=== PATIENT | female | born 1985 | race Caucasian/White ===

== ENCOUNTER 2021-06-11 13:22 | Emergency (ER) | payer OTHER ==
[~2021-06-11] VITALS: Ht 152.4 cm; Wt 49.0 kg
[2021-06-11 14:46] LABS: BASOPHILS ABSOLUTE AUTO 0.04 K/mm3 (0.00-0.23); BASOPHILS PERCENT AUTO 1 % (0-2); EOSINOPHILS ABSOLUTE AUTO 0.06 K/mm3 (0.00-0.68); EOSINOPHILS PERCENT AUTO 1 % (0-6); Hematocrit 48.2 % (33.0-51.0); Hemoglobin 15.6 g/dL (11.5-16.0); IMMATURE GRAN ABSOLUTE AUTO 0.01 K/mm3 (0.00-0.10); IMMATURE GRAN PERCENT AUTO 0 % (0-1); LYMPHOCYTES ABSOLUTE AUTO 0.55 K/mm3 (0.84-5.20); LYMPHOCYTES PERCENT AUTO 9 % (21-46); MONOCYTES PERCENT AUTO 6 % (4-13); Mean Corpuscular HGB 28.6 pg (26.0-34.0); Mean Corpuscular HGB Conc 32.4 g/dL (31.5-36.5); Mean Corpuscular Volume 88 fL (80-100); NEUTROPHILS ABSOLUTE AUTO 5.18 K/mm3 (1.96-9.15); NEUTROPHILS PERCENT AUTO 83 % (41-73); Platelet Count 295 K/mm3 (150-400); RDW Coefficient Variation 13.2 % (11.7-14.2); RDW Standard Deviation 42.7 fL (35.1-46.3); Red Blood Cell Count 5.46 M/mm3 (3.80-5.20); White Blood Cell Count 6.24 K/mm3 (4.00-11.30)
[2021-06-11 15:06] LABS: Alanine Aminotransfer (ALT/SGP 32 U/L (12-78); Albumin, Blood 3.7 g/dL (3.4-5.0); Albumin/Globulin Ratio 0.9 (0.8-1.8); Alk Phos 84 U/L (50-136); Anion Gap 7 mmol/L (6-16); Aspartate Aminotrans (AST/SGOT 15 U/L (12-37); Bilirubin, Total 0.2 mg/dL (0.1-1.0); Blood Urea Nitrogen 6 mg/dL (8-24); Bun/Creatinine Ratio 10.6 (12.0-20.0); CO2, Blood 28 mmol/L (21-32); Chloride, Blood 104 mmol/L (98-108); Creatinine, Blood 0.57 mg/dL (0.40-1.00); Globulin, Blood 4.1 g/dL (2.2-4.0); Glomerular Filtration Rate >60 (60-); Glucose, Blood 99 mg/dL (70-99); Potassium, Blood 3.6 mmol/L (3.5-5.5); Sodium, Blood 139 mmol/L (136-145); Total Protein, Blood 7.8 g/dL (6.4-8.2)
[2021-06-11] MEDS ORDERED: CEFU500T30 PO (16:34)
== END 2021-06-11 16:50 | disposition home or self-care (01) ==
LOC: ER 13:22
PROVIDERS: Physician Assistant
DX: H66.92 Otitis media, unspecified, left ear (principal); N39.0 Urinary tract infection, site not specified; F17.210 Nicotine dependence, cigarettes, uncomplicated
CPT/HCPCS: 71045; 80053; 85025; 99284-25; A9270

== ENCOUNTER → 2021-12-30 | Outpatient (CLI) | payer OTHER ==
[~2021-12-30] MED LIST: CEFU500T30 PO
[2021-12-30 18:59] LABS: BASOPHILS ABSOLUTE AUTO 0.02 K/mm3 (0.00-0.23); BASOPHILS PERCENT AUTO 0 % (0-2); EOSINOPHILS ABSOLUTE AUTO 0.24 K/mm3 (0.00-0.68); EOSINOPHILS PERCENT AUTO 2 % (0-6); Hematocrit 32.4 % (33.0-51.0); Hemoglobin 10.5 g/dL (11.5-16.0); IMMATURE GRAN ABSOLUTE AUTO 0.06 K/mm3 (0.00-0.10); IMMATURE GRAN PERCENT AUTO 1 % (0-1); LYMPHOCYTES ABSOLUTE AUTO 1.93 K/mm3 (0.84-5.20); LYMPHOCYTES PERCENT AUTO 16 % (21-46); MONOCYTES ABSOLUTE AUTO 0.55 K/mm3 (0.16-1.47); MONOCYTES PERCENT AUTO 5 % (4-13); Mean Corpuscular HGB 28.1 pg (26.0-34.0); Mean Corpuscular HGB Conc 32.4 g/dL (31.5-36.5); Mean Corpuscular Volume 87 fL (80-100); Mean Platelet Volume 9.9 fL (9.1-12.4); NEUTROPHILS ABSOLUTE AUTO 9.44 K/mm3 (1.96-9.15); NEUTROPHILS PERCENT AUTO 77 % (41-73); Platelet Count 304 K/mm3 (150-400); RDW Coefficient Variation 13.9 % (11.7-14.2); RDW Standard Deviation 43.4 fL (35.1-46.3); Red Blood Cell Count 3.74 M/mm3 (3.80-5.20); White Blood Cell Count 12.24 K/mm3 (4.00-11.30)
[2021-12-30 20:11] LABS: Percent Saturation 5.8 % (15.0-50.0)
[2021-12-30 20:18] LABS: Albumin, Blood 2.6 g/dL (3.4-5.0); Albumin/Globulin Ratio 0.8 (0.8-1.8); Bilirubin, Total 0.1 mg/dL (0.1-1.0); Bun/Creatinine Ratio 9.6 (12.0-20.0); Calcium, Blood 8.5 mg/dL (8.5-10.1); Creatinine, Blood 0.52 mg/dL (0.40-1.00); Globulin, Blood 3.2 g/dL (2.2-4.0); Potassium, Blood 4.4 mmol/L (3.5-5.5); Total Protein, Blood 5.8 g/dL (6.4-8.2)
== END | disposition home or self-care (01) ==
LOC: LAB 16:20 → LAB SHORT 16:20
PROVIDERS: Obstetrics & Gynecology
DX: O09.93 Supervision of high risk pregnancy, unspecified, third trimester (principal)
CPT/HCPCS: 80053; 82728; 82950; 83540; 83550; 85025

== ENCOUNTER → 2022-01-27 | Outpatient (CLI) | payer OTHER | END | disposition home or self-care (01) | LOC: LAB SHORT 16:04 → LAB 16:04 | DX: O09.33 Supervision of pregnancy with insufficient antenatal care, third trimester (principal) | CPT/HCPCS: 87081; 87150 ==

== ENCOUNTER 2022-02-10 16:56 | Inpatient (IN) | payer OTHER ==
[~2022-02-10] VITALS: Ht 152.4 cm; Wt 65.7 kg
[2022-02-10 17:35] LABS: BASOPHILS ABSOLUTE AUTO 0.03 K/mm3 (0.00-0.23); BASOPHILS PERCENT AUTO 0 % (0-2); EOSINOPHILS ABSOLUTE AUTO 0.13 K/mm3 (0.00-0.68); EOSINOPHILS PERCENT AUTO 1 % (0-6); Hematocrit 32.7 % (33.0-51.0); Hemoglobin 10.9 g/dL (11.5-16.0); IMMATURE GRAN PERCENT AUTO 1 % (0-1); LYMPHOCYTES PERCENT AUTO 14 % (21-46); MONOCYTES PERCENT AUTO 4 % (4-13); Mean Corpuscular HGB Conc 33.3 g/dL (31.5-36.5); Mean Corpuscular Volume 81 fL (80-100); Mean Platelet Volume 9.5 fL (9.1-12.4); NEUTROPHILS ABSOLUTE AUTO 9.51 K/mm3 (1.96-9.15); NEUTROPHILS PERCENT AUTO 79 % (41-73); Platelet Count 291 K/mm3 (150-400); RDW Coefficient Variation 15.3 % (11.7-14.2); RDW Standard Deviation 44.1 fL (35.1-46.3); Red Blood Cell Count 4.03 M/mm3 (3.80-5.20); White Blood Cell Count 11.97 K/mm3 (4.00-11.30)
[2022-02-10 20:39] LABS: U Amphetamine Screen DETECTED; U Barbituate Screen Not Detected; U Benzodiazapine Screen Not Detected; U Cannabinoids Screen Not Detected; U Cocaine Screen Not Detected; U Methadone Screen Not Detected; U Methamphetamine Screen DETECTED; U Opiates Screen Not Detected; U Phencyclidine Screen Not Detected
[2022-02-10 20:40] LABS: U Buprenorphine Screen Not Detected; U Oxycodone Screen Not Detected; U Propoxyphene Screen Not Detected
--- NOTE | 2022-02-11 09:06 | NUR ---
UPON ASSESSMENT, PATIENT STATES THAT SHE ALMOST GOT ARRESTED BECAUSE HER CARD WAS DECLINED, SHE ALSO STATES THAT IT IS RUDE TO TAKE AWAY A PREGRANT'S PARFAIT.
--- NOTE | 2022-02-11 17:14 | NUR ---
UPON MEETING WITH [facility] WORKERS, GILBERTO DALY AND SARAY BARRIOS, PT WAS NOTIFIED THAT THEY WERE DECLARING CUSTODY OF HER SON. PT BECAME EXTREMELY UPSET AND STATED IF [facility] TAKES HER BABY, "I WILL GO HOME AND SLIT MY WRISTS". RN NOTIFIED CHARGE NURSE MOISES SCHNEIDER AND RECOMMENDED TO CALL NURSING GUNITE NOZZLE OPERATOR MOISES SY. MOISES SY CALLED AND UPDATED ON STATEMENTS OF PT. WAS TOLD TO CALL PROVIDER TO COME IN AND ASSESS PT FOR [address] DAVILA CALLED AND WENT TO VOICEMAIL. DR. CRUZ THEN CALLED AND NOTIFIED OF PT'S STATEMENTS REGARDING SELF HARM. AT THIS TIME, PT STARTED TO WALK BY THE NURSES STATION WITH OLGA LIDIA KERR (WHO WAS 04/17 DUE TO SUICIDE RISK) AND SECURITY TONYA CUNHA FOR SAFETY. PT WAS ENCOURAGED TO GO BACK TO HER ROOM AND SHE AGREED. AT THIS TIME, DR. CRUZ WAS TOLD PT WAS LEAVING. COMMUNICATIONS SYSTEMS ENGINEER MOISES GALLARDO CALLED AND REQUESTED TO COME TO THE SWEDGER FOR HELP ON FURTHER DIRECTION. MOISES GALLARDO CALLED MOISES SY AGAIN THINGS WERE ESCALATING. MOISES SY WAS IN THE MIDDLE OF AN EMERGENCY DEPARTMENT SITUATION AND STATED SHE WOULD COME DOWN NI. DR. CRUZ CALLED BACK AND REQUESTED SHE COME IN TO SEE THE PATIENT NOW THE PT WAS BACK IN HER ROOM. AT THIS TIME, RN BACK IN ROOM WITH PT, REQUESTING SHE FINISH THE CERTIFICATE INFORMATION. PT STATED, "WHY, I'M NOT HIS MOTHER NOW". PT THEN STATED SHE WAS, "GOING TO LEAVE AND JUMP IN FRONT OF A CAR". SOON, MOISES SY WAS IN ROOM TO EXPLAIN TO PT WHY THESE STATEMENTS HAVE CAUSED US TO TAKE HER SAFETY SERIOUSLY AND THAT A PHYSICIAN NEEDED TO COME IN AND EVALUATE HER. THAT IF THE PT LEFT AGAINST MEDICAL ADVICE, WE WOULD NEED TO CALL THE POLICE FOR HER SAFETY. PT WAS FRUSTRATED BUT CALMED DOWN AND STATED SHE UNDERSTOOD WHY WHAT SHE HAD SAID PUT IN MOTION FOR STAFF TO BE CONCERNED FOR HER SAFETY. DR. CRUZ THEN ARRIVED ON THE UNIT. AT THIS TIME, DR. DAVILA CALLED BACK AND UPDATED BY RN. DR. CRUZ DECIDED TO TALK TO DR. DAVILA ON THE PHONE AND THEN GO IN AND SPEAK WITH THE PT. THE PT ADMITTED TO DR. CRUZ THAT THE SELF HARM STATEMENTS WERE SAID, "OUT OF FRUSTRATION AND HAVING NO CONTROL OVER THE SITUATION". DR. CRUZ SPENT TIME ASKING PT ABOUT THE REALITY OF PT COMMITTING SUICIDE OR SELF HARM. PT DENIED EVER HAVING PREVIOUS THOUGHTS OF SELF HARM AND DID NOT EVEN AGREE WITH SUICIDE. PT DENIED HISTORY OF ATTEMPTED SUICIDE AND/OR CUTTING HERSELF. PT DENIED HAVING ACCESS TO A GUN. PT STATED SHE JUST, "WANT TO GO HOME TO MY COMFY PILLOWS AND MY DOG". DR. CRUZ ASSESSED AND DETERMINED PT IS NOT SERIOUS ABOUT HER SELF HARM AND SUICIDE THREATES. VERBAL OK TO D/C PT HOME. PT D/C HOME AT 1705.
--- NOTE | 2022-02-11 17:43 | NUR ---
UPON DISCHARGE, PT REFUSED FOLLOW UP APPOITNMENT AND COMPLETING HEALTHY START FORM AND [place] DEPRESSION SCALE.
[2022-02-12 07:11] LABS: HIV AB/P24 AG SCREEN Non Reactive (Non Reactive)
[2022-02-12 10:11] LABS: HBSAG SCREEN Negative (Negative); HCV AB <0.1 (0.0-0.9); HEP B CORE AB, TOT Negative (Negative)
== END 2022-02-11 17:12 | disposition home or self-care (01) | DRG 806 ==
LOC: OBS 16:56 → BC 17:06 → OBS 17:16 → BC 17:18
PROVIDERS: ADMIT Family Medicine
PROC: 10E0XZZ Delivery of Products of Conception, External Approach (ICD-10-PCS; principal; 2022-02-10)
PROC: 10907ZC Drainage of Amniotic Fluid, Therapeutic from Products of Conception, Via Natural or Artificial Opening (ICD-10-PCS; 2022-02-10)
PROC: 3E0R3BZ Introduction of Anesthetic Agent into Spinal Canal, Percutaneous Approach (ICD-10-PCS; 2022-02-10)
PROC: 00HU33Z Insertion of Infusion Device into Spinal Canal, Percutaneous Approach (ICD-10-PCS; 2022-02-10)
DX: O99.324 Drug use complicating childbirth (principal); N39.0 Urinary tract infection, site not specified; Z37.0 Single live birth; O23.43 Unspecified infection of urinary tract in pregnancy, third trimester; F15.10 Other stimulant abuse, uncomplicated; M32.9 Systemic lupus erythematosus, unspecified; O09.33 Supervision of pregnancy with insufficient antenatal care, third trimester; O69.1XX0 Labor and delivery complicated by cord around neck, with compression, not applicable or unspecified; O99.334 Smoking (tobacco) complicating childbirth; F17.210 Nicotine dependence, cigarettes, uncomplicated; Z3A.38 38 weeks gestation of pregnancy; Z86.79 Personal history of other diseases of the circulatory system; Z90.49 Acquired absence of other specified parts of digestive tract; Z98.890 Other specified postprocedural states
CPT/HCPCS: 36415; 51702; 59025; 85025; 86592; 86704; 86708; 86803; 86850; 86900; 86901; 87340; 87389; A9270; J1885; J3010; J7120

== ENCOUNTER → 2022-02-10 | Outpatient (CLI) | payer OTHER ==
[2022-02-10 15:02] LABS: Source, Urine Clean Catch
[2022-02-10 15:51] LABS: Appearance, Urine Hazy (Clear); Bilirubin, Urine Neg (Neg); Blood, Urine Neg (Neg); Color, Urine Amber (P-Yellow); Glucose Qualitative, Urine Neg (Neg); Ketones, Urine 1+ (Neg); Leukocyte Esterase, Urine 1+ (Neg); Nitrite, Urine Pos (Neg); Protein, Urine 2+ (Neg); Urobilinogen, Urine 1+ (Normal)
[2022-02-10 16:31] LABS: Bacteria Many /hpf; Hyaline Casts 0-2 /lpf (0-2); Red Blood Cells, Urine 0-2 /hpf (0-2); Squamous Epithelial Cells Mod /hpf (Few)
[2022-02-10 16:32] LABS: Transitional Epithelial Cells Rare /hpf (0-Rare)
== END | disposition home or self-care (01) ==
LOC: LAB 12:20 → LAB SHORT 12:20
PROVIDERS: Obstetrics & Gynecology
DX: R82.90 Unspecified abnormal findings in urine (principal)
CPT/HCPCS: 81001; 87077; 87086; 87186

== ENCOUNTER 2022-03-19 16:08 | Emergency (ER) | payer OTHER ==
[~2022-03-19] VITALS: Ht 160 cm; Wt 49.9 kg
[2022-03-19 16:41] LABS: BASOPHILS ABSOLUTE AUTO 0.02 K/mm3 (0.00-0.23); BASOPHILS PERCENT AUTO 0 % (0-2); EOSINOPHILS ABSOLUTE AUTO 0.25 K/mm3 (0.00-0.68); EOSINOPHILS PERCENT AUTO 3 % (0-6); Hematocrit 41.6 % (33.0-51.0); Hemoglobin 13.5 g/dL (11.5-16.0); IMMATURE GRAN ABSOLUTE AUTO 0.02 K/mm3 (0.00-0.10); IMMATURE GRAN PERCENT AUTO 0 % (0-1); LYMPHOCYTES ABSOLUTE AUTO 2.53 K/mm3 (0.84-5.20); LYMPHOCYTES PERCENT AUTO 29 % (21-46); MONOCYTES ABSOLUTE AUTO 0.41 K/mm3 (0.16-1.47); MONOCYTES PERCENT AUTO 5 % (4-13); Mean Corpuscular HGB 26.3 pg (26.0-34.0); Mean Corpuscular HGB Conc 32.5 g/dL (31.5-36.5); Mean Corpuscular Volume 81 fL (80-100); Mean Platelet Volume 8.9 fL (9.1-12.4); NEUTROPHILS PERCENT AUTO 63 % (41-73); Platelet Count 391 K/mm3 (150-400); RDW Coefficient Variation 15.5 % (11.7-14.2); RDW Standard Deviation 46.1 fL (35.1-46.3); Red Blood Cell Count 5.13 M/mm3 (3.80-5.20); White Blood Cell Count 8.73 K/mm3 (4.00-11.30)
[2022-03-19 17:59] LABS: Albumin, Blood 3.4 g/dL (3.4-5.0); Albumin/Globulin Ratio 0.9 (0.8-1.8); Bilirubin, Total 0.2 mg/dL (0.1-1.0); Bun/Creatinine Ratio 22.3 (12.0-20.0); Calcium, Blood 8.8 mg/dL (8.5-10.1); Creatinine, Blood 0.63 mg/dL (0.40-1.00); Globulin, Blood 3.6 g/dL (2.2-4.0); Potassium, Blood 3.8 mmol/L (3.5-5.5)
== END 2022-03-19 21:20 | disposition home or self-care (01) ==
LOC: ER 16:08
PROVIDERS: Student in an Organized Health Care Education/Training Program
DX: N93.9 Abnormal uterine and vaginal bleeding, unspecified (principal); I50.9 Heart failure, unspecified; F17.210 Nicotine dependence, cigarettes, uncomplicated
CPT/HCPCS: 36415; 76856; 80053; 85025; 86850; 86870; 86900; 86901